=== PATIENT | female | born 1995 | race Two or more races ===

== ENCOUNTER → 2016-07-25 | Outpatient (CLI) | payer MEDICAID ==
[~2016-07-25] VITALS: Ht 152.4 cm; Wt 78.6 kg
[~2016-07-25] MED LIST: ACETAMINOPHEN 325 MG TABLET ONE; ACETAMINOPHEN 325 MG TABLET PO PRN; ONDA4TAB7; ONDA4TAB7 PO; ONDANSETRON ODT 4 MG ONE; ONDANSETRON ODT 8 MG PO ONE; PREN1TAB60 PO
[2016-07-25 01:34] VITALS: BP 131/68
== END | disposition home or self-care (01) ==
LOC: LDOP 01:31
PROVIDERS: ATTEND Obstetrics & Gynecology Maternal & Fetal Medicine
DX: O26.893 Other specified pregnancy related conditions, third trimester (principal); R10.9 Unspecified abdominal pain; R51 Headache; R53.1 Weakness; O21.9 Vomiting of pregnancy, unspecified; O62.9 Abnormality of forces of labor, unspecified; O11.3 Pre-existing hypertension with pre-eclampsia, third trimester; Z3A.38 38 weeks gestation of pregnancy
CPT/HCPCS: 59025; 99211; Q0162; G0463

== ENCOUNTER 2016-07-31 12:10 | Inpatient (IN) | payer MEDICAID ==
[~2016-07-31] VITALS: Ht 152.4 cm; Wt 80.0 kg
[~2016-07-31 12:10] MED LIST changes: -ACETAMINOPHEN 325 MG TABLET ONE; -ACETAMINOPHEN 325 MG TABLET PO PRN; -ONDANSETRON ODT 4 MG ONE; -ONDANSETRON ODT 8 MG PO ONE
[2016-07-31] MEDS ORDERED: OXYTOCIN 30U/ 0.9% NaCL 500ML 500 ML IV PRN (12:27)
[2016-07-31] MEDS ORDERED: LACTATED RINGERS 1,000 ML IV SCH ×2 (12:27→23:11)
[2016-07-31] MEDS ORDERED: OXYTOCIN 30U/ 0.9% NaCL 500ML 500 ML IV ONE (12:27)
[2016-07-31] MEDS ORDERED: D5%-LACTATED RINGERS 1,000 ML IV SCH (12:27)
[2016-07-31 12:30] VITALS: BP 106/62
[2016-07-31] MEDS ORDERED: ONDANSETRON 2MG/ML, 2ML IVPush PRN (12:30)
[2016-07-31] MEDS ORDERED: FENTANYL PF 100 MCG/2ML IV PRN (12:30)
[2016-07-31] MEDS ORDERED: FENTANYL PF 100 MCG/2ML IVPush PRN (12:30)
[2016-07-31] MEDS ORDERED: CALCIUM CARBONATE 500 MG TAB.CHEW PO PRN (12:30)
[2016-07-31] MEDS ORDERED: PLEASE ENTER HEIGHT AND WEIGHT MC SCH (13:00)
[2016-07-31] MEDS ORDERED: NEWBORN KIT ONE (16:45)
[2016-07-31] MEDS ORDERED: FENTANYL/BUPIV./NS/PF 250 ML EPIDCONT ONE ×2 (18:57→19:05)
[2016-07-31] MEDS ORDERED: FENTANYL PF 100 MCG/2ML ONE ×2 (18:57→19:05)
[2016-07-31] MEDS ORDERED: BUPIVACAINE 0.25% ONE ×2 (18:57→19:05)
[2016-07-31] MEDS ORDERED: LIDOCAINE/PF 1.5%-EPI 1:200K, 30ML ONE (19:05)
[2016-07-31 19:58] VITALS: BP 119/63
[2016-07-31] MEDS ORDERED: OXYTOCIN 30U/ 0.9% NaCL 500ML 500 ML IV SCH (22:35)
[2016-07-31] MEDS ORDERED: RHOGAM FROM BLOOD BANK 1 NOTE EA IM/IV ONE (23:00)
[2016-07-31] MEDS ORDERED: MISOPROSTOL 200 MCG TABLET PR PRN (23:00)
[2016-07-31] MEDS ORDERED: ACETAMINOPHEN 325 MG TABLET PO PRN (23:00)
[2016-07-31] MEDS ORDERED: ONDANSETRON 2MG/ML, 2ML IV PRN (23:00)
[2016-07-31] MEDS ORDERED: DOCUSATE 100 MG CAPSULE PO PRN (23:00)
[2016-07-31] MEDS ORDERED: CARBOPROST TROMETHAMINE 250 MCG/ML, 1ML IM PRN (23:00)
[2016-07-31] MEDS ORDERED: BISACODYL 10 MG SUPP PR PRN (23:00)
[2016-07-31] MEDS ORDERED: DIPH,PERTUSS(ACELL),TET VAC/PF NC IM-VACC PRN (23:00)
[2016-07-31] MEDS ORDERED: METHYLERGONOVINE 0.2 MG/ML IM PRN (23:00)
[2016-07-31] MEDS ORDERED: OXYcodone/APAP 5/325MG TABLET PO PRN (23:00)
[2016-07-31] MEDS ORDERED: FENTANYL/BUPIV./NS/PF 250 ML EPIDCONT SCH (23:11)
[2016-07-31] MEDS ORDERED: LACTATED RINGERS 1,000 ML IVBOLUS PRN (23:30)
[2016-08-01] VITALS: BP 114/64
[2016-08-01] MEDS: OXYcodone/APAP 5/325MG TABLET PO PRN ×4 (00:11→22:01)
[2016-08-01] MEDS: IBUPROFEN 600 MG TABLET PO PRN ×4 (00:11→22:01)
[2016-08-01 03:40] VITALS: BP 104/50
[2016-08-01 08:00] VITALS: BP 101/62
[2016-08-01] MEDS ORDERED: PRENATAL VIT/IRON/FA 1 EACH TABLET PO SCH (09:00)
[2016-08-01 12:06] VITALS: BP 104/54
[2016-08-01] MEDS ORDERED: OXYC-302 PO (15:39)
[2016-08-01] MEDS ORDERED: IBUP-1222 PO (15:39)
[2016-08-01 16:17] VITALS: BP 108/61
[2016-08-01 19:30] VITALS: BP 104/53
== END 2016-08-01 22:17 | disposition home or self-care (01) | DRG 775 ==
LOC: LDIP 12:10 → 2NW 23:42
PROVIDERS: ADMIT Obstetrics & Gynecology Maternal & Fetal Medicine; ATTEND Obstetrics & Gynecology Maternal & Fetal Medicine
PROC: 10E0XZZ Delivery of Products of Conception, External Approach (ICD-10-PCS; principal; 2016-07-31)
PROC: 10907ZC Drainage of Amniotic Fluid, Therapeutic from Products of Conception, Via Natural or Artificial Opening (ICD-10-PCS; 2016-07-31)
PROC: 3E033VJ Introduction of Other Hormone into Peripheral Vein, Percutaneous Approach (ICD-10-PCS; 2016-07-31)
PROC: 00HU33Z Insertion of Infusion Device into Spinal Canal, Percutaneous Approach (ICD-10-PCS; 2016-07-31)
PROC: 3E0R3CZ (ICD-10-PCS; 2016-07-31)
DX: O80 Encounter for full-term uncomplicated delivery (principal); Z37.0 Single live birth; Z3A.39 39 weeks gestation of pregnancy; Z23 Encounter for immunization
CPT/HCPCS: 36415; 85025; 86850; 86900; 90715; J3010; J3490; J2590; J7120